=== PATIENT | female | born 1970 | race Caucasian/White ===

== ENCOUNTER 2017-02-21 13:04 | Observation (INO) | payer SELFPAY ==
[2017-02-21] MEDS ORDERED: CEFTRIAXONE SODIUM 1 GM in 0.9 % SODIUM CHLORIDE 100ML 100 ML IVPB ONE (14:08)
[2017-02-21] MEDS ORDERED: 0.9 % SODIUM CHLORIDE 1000ML 1,000 ML IV PRN ×2 (14:08→18:04)
--- NOTE | 2017-02-21 14:14 | Emergency Department Record ---
History of Present Illness - General Chief complaint: Nosebleed/epistaxis Stated complaint: PAIN INSIDE HER NOSE Time Seen by Provider: 02/21/17 14:04 Source: Patient, RN notes reviewed Mode of Arrival: Ambulatory - History of Present Illness Initial comments: right nostril abcess for 2 days with swelling right side of face. Onset/Timin -: Days(s) Location: Nose Severity: Severe Severity scale (1-10): 10 Quality: Sharp Consistency: Constant Improves with: Cold therapy Worsens with: None - Related Data Home Medications Medication Instructions Recorded Confirmed Last Taken No Home Med [NO HOME MEDS] 02/21/17 02/21/17 Unknown Allergies Allergy/AdvReac Type Severity Reaction Status Date / Time Penicillins AdvReac Severe yeast Verified 02/21/17 13:21 infection Travel Screening - Travel/Exposure Within Last 30 Days Have you traveled within the last 30 days?: No Review of Systems Reviewed: No additional complaints except as noted below Constitutional: Reports: As per HPI. Denies: Chills, Fever, Malaise, Night sweats, Weakness, Weight change Eyes: Reports: As per HPI. Denies: Eye discharge, Eye pain, Photophobia, Vision change ENT: Reports: As per HPI. Denies: Congestion, Dental pain, Ear pain, Epistaxis , Hearing loss, Throat pain Respiratory: Reports: As per HPI. Denies: Cough, Dyspnea, Hemoptysis, Stridor, Wheezes Cardiovascular: Reports: As per HPI. Denies: Arrhythmia, Chest pain, Dyspnea on exertion, Edema, Murmurs, Orthopnea, Palpitations, Paroxysmal nocturnal dyspnea, Rheumatic Fever, Syncope Endocrine: Reports: As per HPI. Denies: Fatigue, Heat or cold intolerance, Polydipsia, Polyuria Gastrointestinal: Reports: As per HPI. Denies: Abdominal pain, Constipation, Diarrhea, Hematemesis, Hematochezia, Melena, Nausea, Vomiting Genitourinary: Reports: As per HPI. Denies: Abnormal menses, Discharge, Dyspareunia, Dysuria, Frequency, Hematuria, Incontinence, Retention, Urgency Musculoskeletal: Reports: As per HPI. Denies: Arthralgia, Back pain, Gout, Joint swelling, Myalgia, Neck pain Skin: Reports: As per HPI. Denies: Bruising, Change in color, Change in hair/ nails, Lesions, Pruritus, Rash Neurological: Reports: As per HPI. Denies: Abnormal gait, Confusion, Headache, Numbness, Paresthesias, Seizure, Tingling, Tremors, Vertigo, Weakness Psychiatric: Reports: As per HPI. Denies: Anxiety, Auditory hallucinations, Depression, Homicidal thoughts, Suicidal thoughts, Visual hallucinations Hematological/Lymphatic: Reports: As per HPI. Denies: Anemia, Blood Clots, Easy bleeding, Easy bruising, Swollen glands Past Medical History - SOCIAL HISTORY Smoking Status: Current every day smoker Alcohol Use: None Drug Use: None - RESPIRATORY Hx Respiratory Disorders: No - CARDIOVASCULAR Hx Cardio Disorders: No - NEURO Hx Neuro Disorders: No - GI Hx GI Disorders: No - Hx Genitourinary Disorders: No - ENDOCRINE Hx Endocrine Disorders: No - MUSCULOSKELETAL Hx Musculoskeletal Disorders: No - PSYCH Hx Psych Problems: No - HEMATOLOGY/ONCOLOGY Hx Hematology/Oncology Disorders: No Family Medical History Any Significant Family History?: No Physical Exam - General General Appearance: Alert, Oriented x3, Cooperative, No acute distress - Head Head exam: Normal inspection - Eye Eye exam: Normal appearance, PERRL Pupils: Normal accommodation - ENT ENT exam: Normal exam, Mucous membranes moist, Normal external ear exam, Normal orophraynx, TM's normal bilaterally Ear exam: Normal external inspection. negative: External canal tenderness Nasal Exam: Discharge, Other (abscess tenderness in the right nostril). negative: Sinus tenderness Mouth exam: Normal external inspection, Tongue normal Teeth exam: Normal inspection. negative: Dental caries Throat exam: Normal inspection. negative: Tonsillar erythema, Tonsillar exudate - Neck Neck exam: Normal inspection, Full ROM. negative: Tenderness - Respiratory Respiratory exam: Normal lung sounds bilaterally. negative: Respiratory distress - Cardiovascular Cardiovascular Exam: Regular rate, Normal rhythm, Normal heart sounds - GI/Abdominal GI/Abdominal exam: Soft, Normal bowel sounds. negative: Tenderness - Rectal Rectal exam: Deferred - exam: Deferred - Extremities Extremities exam: Normal inspection, Full ROM, Normal capillary refill. negative: Tenderness - Back Back exam: Reports: Normal inspection, Full ROM. Denies: Muscle spasm, Rash noted, Tenderness - Neurological Neurological exam: Alert, Normal gait, Oriented X3, Reflexes normal - Psychiatric Psychiatric exam: Normal affect, Normal mood - Skin Skin exam: Dry, Intact, Normal color, Warm Course Vital Signs 02/21/17 13:17 Temperature 97.4 F L Pulse Rate 64 Respiratory 22 Rate Blood Pressure 133/91 Pulse Ox 100 - Reevaluation(s) Reevaluation #1: abcess inside the right nostril cleaned with shurclens 2% lidocaino.5 ml incision with a 11 blade with purulent drainage no packing placed 02/21/17 14:52 Reevaluation #2: Discussed case with Ann and will admit to Dr Garcia 02/21/17 14:56 Medical Decision Making - Lab Data Result diagrams: 02/21/17 14:20 02/21/17 14:20 Disposition Clinical Impression: Abscess of face, Facial cellulitis Decision to Admit: Admit from ER Condition: (1) Good Forms: Patient Portal Access Quality - Quality Measures Quality Measures: N/A - Blood Pressure Screening Blood Pressure Classification: Hypertensive Reading Systolic Measurement: 133 Diastolic Measurement: 91 Screening for High Blood Pressure: < First Hypertensive BP, F/U Documented > [ [id number]] First Hypertensive Follow-up Interventions: Referral to alternative/primary care provider.
[2017-02-21 14:25] LABS: BASO % 0.6 % (0-6); GRAN % 65.7 % (47-80); HEMATOCRIT 40.1 % (35.0-47.0); HEMOGLOBIN 13.5 gm/dl (11.6-16.0); LYMPH % 22.3 % (16-45); MEAN CELL VOLUME 92.2 fl (81-97); MEAN CORPUSCULAR HGB CONC 33.7 g/dl (32-36); MEAN PLATELET VOLUME 9.7 fl (7.4-10.4); MONO % 8.4 % (0-9); PLATELET COUNT 246 K/uL (130-400); RED BLOOD COUNT 4.35 M/uL (3.80-5.40); RED CELL DISTRIBUTION WIDTH 13.1 % (11.5-14.5); WHITE BLOOD COUNT W/O DIFF 8.7 K/uL (4.2-12.2)
[2017-02-21] MEDS ORDERED: HYDROMORPHONE HCL 1 MG/ML CPJ IVP ONE (14:29)
[2017-02-21 14:43] LABS: ANION GAP 9.6 (7-16); BLOOD UREA NITROGEN 6 mg/dL (7-17); CARBON DIOXIDE 24.4 mmol/L (22-30); CREATININE 0.6 mg/dL (0.52-1.04); EST GLOMERULAR FILTRATION RATE > 60 ml/min; GLUCOSE,RANDOM 83 mg/dL (70-110)
[2017-02-21] MEDS ORDERED: TMP/SMZ 160MG/800MG TAB PO ONE (14:55)
[2017-02-21] MEDS ORDERED: AL HYDROX/MAG HYDROX 30ML UD PO PRN (18:04)
[2017-02-21] MEDS ORDERED: ACETAMINOPHEN 500 MG TABLET PO PRN (18:04)
[2017-02-21] MEDS: HYDROCODONE/APAP 5/325MG TABLET PO PRN ×2 (18:18→22:15)
[2017-02-21] MEDS: TMP/SMZ 160MG/800MG TAB PO SCH (22:15)
[2017-02-22] MEDS ORDERED: CEFTRIAXONE SODIUM 1 GM in 0.9 % SODIUM CHLORIDE 100ML 100 ML IVPB SCH (02:00)
[2017-02-22] MEDS: HYDROCODONE/APAP 5/325MG TABLET PO PRN ×2 (03:28→10:25)
[2017-02-22] MEDS ORDERED: ENOXAPARIN 40 MG/0.4 ML SYR SC SCH (10:00)
[2017-02-22] MEDS: TMP/SMZ 160MG/800MG TAB PO SCH (10:25)
--- NOTE | 2017-02-22 11:28 | History & Physical ---
History of Present Illness - Date of Service Date of Service for History & Physical: 02/22/17 - History of Present Illness Admitting Diagnosis: abscess right nostril/face. facial cellulitis History of Present Illness: 46 y/o female with CC 2 day history right nare and facial swelling admitted for right nare abscess. Past medical history includes current every day smoker. Prior to admit had 2 day history right nare and sinus/face pain and swelling. Denies any new piercings, nasal trauma, or open facial wound. Has never had this occur before. Denies fever, chills but did report she overall did not feel good due to facial pain. Denies any previous history of MRSA. Does not have a PCP. Does not have insurance. While in ED was afebrile, CBC normal, CMP unremarkable. Right nare abscess was drained with small amount purulent exudate expressed. Did have significant right nare and facial swelling. IV Rocephin and oral Bactrim started prior to arrival to floor Laboratory Results WBC 8.7 K/uL (4.2-12.2) 02/21/17 14:20 RBC 4.35 M/uL (3.80-5.40) 02/21/17 14:20 Hgb 13.5 gm/dl (11.6-16.0) 02/21/17 14:20 Hct 40.1 % (35.0-47.0) 02/21/17 14:20 MCV 92.2 fl (81-97) 02/21/17 14:20 MCH 31.0 pg (27-33) 02/21/17 14:20 MCHC 33.7 g/dl (32-36) 02/21/17 14:20 RDW 13.1 % (11.5-14.5) 02/21/17 14:20 Plt Count 246 K/uL (130-400) 02/21/17 14:20 MPV 9.7 fl (7.4-10.4) 02/21/17 14:20 Gran % 65.7 % (47-80) 02/21/17 14:20 Lymphocytes % 22.3 % (16-45) 02/21/17 14:20 Monocytes % 8.4 % (0-9) 02/21/17 14:20 Eosinophils % 3.0 % (0-6) 02/21/17 14:20 Basophils % 0.6 % (0-6) 02/21/17 14:20 Sodium 141 mmol/L (136-145) 02/21/17 14:20 Potassium 3.6 mmol/L (3.5-5.1) 02/21/17 14:20 Chloride 107 mmol/L (98-107) 02/21/17 14:20 Carbon Dioxide 24.4 mmol/L (22-30) 02/21/17 14:20 Anion Gap 9.6 (7-16) 02/21/17 14:20 BUN 6 mg/dL (7-17) L 02/21/17 14:20 Creatinine 0.6 mg/dL (0.52-1.04) 02/21/17 14:20 Estimated GFR > 60 ml/min 02/21/17 14:20 Random Glucose 83 mg/dL (70-110) 02/21/17 14:20 Calcium 8.3 mg/dL (8.5-10.1) L 02/21/17 14:20 Vital Signs - Last 24 Hrs Temp Pulse Pulse Resp BP BP Pulse Ox 02/22/17 09:00 16 02/22/17 08:38 68 16 111/63 98 02/22/17 06:00 97.8 F 71 21 112/74 98 02/22/17 01:41 98.0 F 64 16 112/64 99 02/21/17 22:00 98.0 F 77 24 108/67 99 02/21/17 20:47 16 02/21/17 18:29 70 16 124/84 97 02/21/17 16:32 98.3 F 72 18 116/76 100 02/21/17 13:17 97.4 F L 64 22 133/91 100 02/22/17- resting in bed, does still have pain 2/10 to right nare and face. Denies any fevers, chills, epistaxis or drainage from right nare. Reports heat to area has helped with discomfort, did try ice with no relief. PCP: none Travel Screening - Travel/Exposure Within Last 30 Days Have you traveled within the last 30 days?: No - Travel/Exposure Within Last Year Have you traveled outside the [place] in the last year?: No - Additonal Travel Details Have you been exposed to anyone with a communicable illness?: No Review of Systems Constitutional: Reports: As per HPI. Denies: Chills, Fever, Malaise, Night sweats, Weakness, Weight change Eyes: Reports: As per HPI. Denies: Eye discharge, Eye pain, Photophobia, Vision change ENT: Reports: As per HPI. Denies: Congestion, Dental pain, Ear pain, Epistaxis , Hearing loss, Throat pain Respiratory: Reports: As per HPI. Denies: Cough, Dyspnea, Hemoptysis, Stridor, Wheezes Cardiovascular: Reports: As per HPI. Denies: Arrhythmia, Chest pain, Dyspnea on exertion, Edema, Murmurs, Orthopnea, Palpitations, Paroxysmal nocturnal dyspnea, Rheumatic Fever, Syncope Endocrine: Reports: As per HPI. Denies: Fatigue, Heat or cold intolerance, Polydipsia, Polyuria Gastrointestinal: Reports: As per HPI. Denies: Abdominal pain, Constipation, Diarrhea, Hematemesis, Hematochezia, Melena, Nausea, Vomiting Genitourinary: Reports: As per HPI. Denies: Abnormal menses, Discharge, Dyspareunia, Dysuria, Frequency, Hematuria, Incontinence, Retention, Urgency Musculoskeletal: Reports: As per HPI. Denies: Arthralgia, Back pain, Gout, Joint swelling, Myalgia, Neck pain Skin: Reports: As per HPI. Denies: Bruising, Change in color, Change in hair/ nails, Lesions, Pruritus, Rash Neurological: Reports: As per HPI. Denies: Abnormal gait, Confusion, Headache, Numbness, Paresthesias, Seizure, Tingling, Tremors, Vertigo, Weakness Psychiatric: Reports: As per HPI. Denies: Anxiety, Auditory hallucinations, Depression, Homicidal thoughts, Suicidal thoughts, Visual hallucinations Hematological/Lymphatic: Reports: As per HPI. Denies: Anemia, Blood Clots, Easy bleeding, Easy bruising, Swollen glands Past Medical History - SOCIAL HISTORY Smoking Status: Current every day smoker Alcohol Use: Heavy Alcohol Use Comment: Quit 2014 Drug Use: None - RESPIRATORY Hx Respiratory Disorders: No Hx Asthma: No Hx Bronchitis: No Hx COPD: No Hx Dyspnea: No Hx Pneumonia: Yes (1976) Hx Pulmonary Embolism: No Hx Sleep Apnea: No Hx Tuberculosis: No Hx of CPAP: No - CARDIOVASCULAR Hx Cardio Disorders: No Hx Abnormal EKG: No Hx Cardiac Cath: No Hx Chest Pain: No Hx CHF: No Hx Deep Vein Thrombosis: No Hx Edema: No Hx Heart Attack: No Hx Hypertension: No Hx Hypotension: No Hx Irregular Heartbeat: No Hx Palpitations: No Hx Pacemaker/Defib: No Hx Vascular Disease: No - NEURO Hx Neuro Disorders: No Hx Brain Tumor: No Hx CVA: No Hx Dementia: No Hx Dizziness: No Hx Headaches: Yes Hx Neuropathy: No Hx Parkinson's Disease: No Hx Seizures: No Hx Speech Problem: No Hx TIA: No - GI Hx GI Disorders: No Hx Abdominal Pain: No Hx Celiac Disease: No Hx Crohn's Disease: No Hx Diverticulitis: No Hx GI Bleed: No Hx Reflux: No Hx Hepatitis/Jaundice: No Hx Hiatal Hernia: No Hx Irritable Bowel: No Hx Liver Disease: No Hx Nausea/Vomiting: No Hx Obstructive Bowel: No Hx Pancreatitis: No Hx Rectal Bleeding: No Hx Ulcer: No Hx Wt Loss/Wt Gain: No Hx of Polyps: No - Hx Genitourinary Disorders: No - ENDOCRINE Hx Endocrine Disorders: No - MUSCULOSKELETAL Hx Musculoskeletal Disorders: No - PSYCH Hx Psych Problems: No - HEMATOLOGY/ONCOLOGY Hx Hematology/Oncology Disorders: No Family Medical History Any Significant Family History?: No H&P Meds/Allergies - Allergies Allergies: Allergies Allergy/AdvReac Type Severity Reaction Status Date / Time Penicillins AdvReac Severe yeast Verified 02/21/17 13:21 infection - Home Medications Home Medications Medication Instructions Recorded Confirmed Last Taken No Home Med [NO HOME MEDS] 02/21/17 02/21/17 Unknown - Active Medications Active Medications: Current Medications Acetaminophen (Tylenol 500mg Tab) 1,000 mg PO Q6H PRN PRN Reason: PAIN/TEMP Hydrocodone Bitart/Acetaminophen (Orestes 5mg/325mg) 1 each PO Q4H PRN PRN Reason: Analgesia Last Admin: 02/22/17 10:25 Dose: 1 each Al Hydroxide/Mg Hydroxide (Maalox) 30 ml PO Q4H PRN PRN Reason: GI UPSET Enoxaparin Sodium (Lovenox) 40 mg SC DAILY JOSEE Last Admin: 02/22/17 10:24 Dose: 40 mg Sodium Chloride () 1,000 mls @ 100 mls/hr IV .Q10H PRN PRN Reason: LARGE VOLUME IV Ceftriaxone Sodium 1 gm/ (Sodium Chloride) 100 mls @ 100 mls/hr IVPB Q12H JOSEE Stop: 02/27/17 02:01 Last Infusion: 02/22/17 03:36 Dose: Infused Trimethoprim/Sulfamethoxazole (Bactrim Ds) 1 each PO BID JOSEE Last Admin: 02/22/17 10:25 Dose: 1 each Physical Exam - Vital Signs Vital Signs: Vital Signs - Last 24 Hrs Temp Pulse Resp BP Pulse Ox 02/22/17 09:00 16 02/22/17 08:38 68 16 111/63 98 02/22/17 06:00 97.8 F 71 21 112/74 98 02/22/17 01:41 98.0 F 64 16 112/64 99 02/21/17 22:00 98.0 F 77 24 108/67 99 02/21/17 20:47 16 02/21/17 18:29 70 16 124/84 97 - General General Appearance: Alert, Oriented x3, Cooperative, No acute distress - Head Head exam: Normal inspection - Eye Eye exam: Normal appearance, PERRL Pupils: Normal accommodation - ENT ENT exam: Normal exam, Mucous membranes moist, Normal external ear exam, Normal orophraynx, TM's normal bilaterally Ear exam: Normal external inspection. negative: External canal tenderness Nasal Exam: Discharge, Other (abscess tenderness in the right nostril). negative: Sinus tenderness Mouth exam: Normal external inspection, Tongue normal Teeth exam: Normal inspection. negative: Dental caries Throat exam: Normal inspection. negative: Tonsillar erythema, Tonsillar exudate - Neck Neck exam: Normal inspection, Full ROM. negative: Tenderness - Respiratory Respiratory exam: Normal lung sounds bilaterally. negative: Respiratory distress - Cardiovascular Cardiovascular Exam: Regular rate, Normal rhythm, Normal heart sounds - GI/Abdominal GI/Abdominal exam: Soft, Normal bowel sounds. negative: Tenderness - Rectal Rectal exam: Deferred - exam: Deferred - Extremities Extremities exam: Normal inspection, Full ROM, Normal capillary refill. negative: Tenderness - Back Back exam: Reports: Normal inspection, Full ROM. Denies: Muscle spasm, Rash noted, Tenderness - Neurological Neurological exam: Alert, Normal gait, Oriented X3, Reflexes normal - Psychiatric Psychiatric exam: Normal affect, Normal mood - Skin Skin exam: Dry, Intact, Normal color, Warm Results - Labs Result Diagrams: 02/21/17 14:20 02/21/17 14:20 VTE H&P Assessment - Risk for VTE Risk for VTE: Yes Risk Level: Moderate Risk Assessment Date: 02/22/17 Risk Assessment Time: 11:45 VTE Orders Placed or Will Be Placed: Yes Plan - Detailed Diagnosis and Plan (1) Facial cellulitis Current Visit: Yes Status: Acute Base Code: L03.211 - CELLULITIS OF FACE Comment: 02/22/17- 2 day history of right nasal and facial swelling and pain admitted for abscess s/p I&D in ED. Significant amount of right facial and nare swelling yesterday much improved this am. Is tolerating antibiotics. - WBC normal, afebrile - pain control - Rocephin IV - Bactrim PO - will cover for both strep and staph bacteria - no previous hx or occurrence or MRSA - heat/ice - advised she contact [facility] to apply to be a new patient for follow up and health prevention and schedule follow up with 1-2 weeks after discharge - advised to contact fianancial services to discuss payment options and persuing insurance options (2) Abscess of face Current Visit: Yes Status: Acute Base Code: L02.01 - CUTANEOUS ABSCESS OF FACE Comment: 02/22/17- 2 day history of right nasal and facial swelling and pain admitted for abscess s/p I&D in ED. Significant amount of right facial and nare swelling yesterday much improved this am. Is tolerating antibiotics. - WBC normal, afebrile - pain control - Rocephin IV - Bactrim PO - will cover for both strep and staph bacteria - no previous hx or occurrence or MRSA - heat/ice - advised she contact [facility] to apply to be a new patient for follow up and health prevention and schedule follow up with 1-2 weeks after discharge - advised to contact fianancial services to discuss payment options and persuing insurance options (3) DVT prophylaxis Current Visit: Yes Status: Acute Base Code: [id number] - Comment: 02/22/17- nursing to encourage frequent ambulation (4) Full code status Current Visit: Yes Status: Acute Base Code: Z78.9 - OTHER SPECIFIED HEALTH STATUS Comment: 02/22/17- will remain full code during this hospitalization
--- NOTE | 2017-02-22 11:55 | Discharge Summary ---
Providers Discharge Summary Date: 02/22/17 Date of admission: 02/21/17 17:49 Expected Date of Discharge: 02/22/17 Attending physician: ALFA MILAN Physical Exam - Vital Signs Vital Signs: Vital Signs - Last 24 Hrs Temp Pulse Resp BP Pulse Ox 02/22/17 09:00 16 02/22/17 08:38 68 16 111/63 98 02/22/17 06:00 97.8 F 71 21 112/74 98 02/22/17 01:41 98.0 F 64 16 112/64 99 02/21/17 22:00 98.0 F 77 24 108/67 99 02/21/17 20:47 16 02/21/17 18:29 70 16 124/84 97 - General General Appearance: Alert, Oriented x3, Cooperative, No acute distress - Head Head exam: Normal inspection - Eye Eye exam: Normal appearance, PERRL Pupils: Normal accommodation - ENT ENT exam: Normal exam, Mucous membranes moist, Normal external ear exam, Normal orophraynx, TM's normal bilaterally Ear exam: Normal external inspection. negative: External canal tenderness Nasal Exam: Discharge, Other (abscess tenderness in the right nostril). negative: Sinus tenderness Mouth exam: Normal external inspection, Tongue normal Teeth exam: Normal inspection. negative: Dental caries Throat exam: Normal inspection. negative: Tonsillar erythema, Tonsillar exudate - Neck Neck exam: Normal inspection, Full ROM. negative: Tenderness - Respiratory Respiratory exam: Normal lung sounds bilaterally. negative: Respiratory distress - Cardiovascular Cardiovascular Exam: Regular rate, Normal rhythm, Normal heart sounds - GI/Abdominal GI/Abdominal exam: Soft, Normal bowel sounds. negative: Tenderness - Rectal Rectal exam: Deferred - exam: Deferred - Extremities Extremities exam: Normal inspection, Full ROM, Normal capillary refill. negative: Tenderness - Back Back exam: Reports: Normal inspection, Full ROM. Denies: Muscle spasm, Rash noted, Tenderness - Neurological Neurological exam: Alert, Normal gait, Oriented X3, Reflexes normal - Psychiatric Psychiatric exam: Normal affect, Normal mood - Skin Skin exam: Dry, Intact, Normal color, Warm Hospitalization - Hospitalization Admission Diagnosis: abscess right nostril/face. facial cellulitis - Problem List/Discharge Diagnosis (1) Facial cellulitis Current Visit: Yes Status: Acute Base Code: L03.211 - CELLULITIS OF FACE Comment: 02/22/17- 2 day history of right nasal and facial swelling and pain admitted for abscess s/p I&D in ED. Significant amount of right facial and nare swelling yesterday much improved this am. Is tolerating antibiotics. - WBC normal, afebrile - pain controlled with [place], will dispense small amount for home - Omnicef 300mg BID x 7 days - Bactrim DS 1 BID x 5 days - will cover for both strep and staph bacteria - no previous hx or occurrence or MRSA - heat/ice - advised she contact [facility] to apply to be a new patient for follow up and health prevention and schedule follow up with 1-2 weeks after discharge - advised to contact [facility] to discuss payment options and persuing insurance options (2) Abscess of face Current Visit: Yes Status: Acute Base Code: L02.01 - CUTANEOUS ABSCESS OF FACE Comment: 02/22/17- 2 day history of right nasal and facial swelling and pain admitted for abscess s/p I&D in ED. Significant amount of right facial and nare swelling yesterday much improved this am. Is tolerating antibiotics. - WBC normal, afebrile - pain controlled with [place], will dispense small amount for home - Omnicef 300mg BID x 7 days - Bactrim DS 1 BID x 5 days - will cover for both strep and staph bacteria - no previous hx or occurrence or MRSA - heat/ice - advised she contact [facility] to apply to be a new patient for follow up and health prevention and schedule follow up with 1-2 weeks after discharge - [facility] and persuing insurance options (3) DVT prophylaxis Current Visit: Yes Status: Acute Base Code: [id number] - Comment: 02/22/17- nursing to encourage frequent ambulation (4) Full code status Current Visit: Yes Status: Acute Base Code: Z78.9 - OTHER SPECIFIED HEALTH STATUS Comment: 02/22/17- will remain full code during this hospitalization - Hospitalization Course Disposition: Home, Self-Care Condition at Discharge: (1) Good Discharge Medications - Discharge Medications Prescriptions: Hydrocodone/Acetaminophen [[place] 5-325 Tablet] 1 each PO Q6HR PRN #15 tablet PRN Reason: Pain - Moderate (5-7) Cefdinir [Omnicef] 300 mg PO BID #14 cap Fluconazole [Diflucan] 150 mg PO ONCE #2 tab Sulfamethoxazole/Trimethoprim [Bactrim] 1 each PO BID #10 tab Home Medications: Ambulatory Orders Acetaminophen [Tylenol 500Mg Tab] 1,000 mg PO Q6H PRN 02/22/17 [Last Taken Unknown] Cefdinir [Omnicef] 300 mg PO BID #14 cap 02/22/17 [Last Taken Unknown] Fluconazole [Diflucan] 150 mg PO ONCE #2 tab 02/22/17 [Last Taken Unknown] Hydrocodone/Acetaminophen [[place] 5-325 Tablet] 1 each PO Q6HR PRN #15 tablet [Last Taken Unknown] Sulfamethoxazole/Trimethoprim [Bactrim] 1 each PO BID #10 tab 02/22/17 [Last Taken Unknown] Discharge Plan - Discharge Instructions Activity at Discharge: Resume Usual Activities As Tolerated Diet at Discharge: Regular Diet Instructions: Cellulitis (DC) Additional Instructions: 2 Activity: Resume Usual Activities As Tolerated 2 Diet: Regular Diet 2 2 2 2 Additional: If any worsening in symptoms, return to closest Emergency Department Watch for smelly drainage from site, if present return to closest Emergency Department
== END 2017-02-22 13:00 | disposition home or self-care (01) ==
LOC: ER 13:04 → MEDSURG 17:49 → INTOOBSV 17:49
PROVIDERS: ADMIT Family Medicine; ATTEND Family Medicine
DX: J34.0 Abscess, furuncle and carbuncle of nose (principal); L03.211 Cellulitis of face; F17.200 Nicotine dependence, unspecified, uncomplicated
CPT/HCPCS: 30000 ×2; 99285 ×2; 96365; 96375; 85025; 80048; G0378 ×2; J3490 ×2; J1170; 99220; J1650